=== PATIENT | male | born 1960 | race Caucasian/White ===

== ENCOUNTER 2020-09-12 17:06 | Emergency (ER) | payer BC, SELFPAY ==
[2020-09-12 17:28] VITALS: BP 150/82
[2020-09-12 17:47] VITALS: PULSE 70; RESP 18; TEMP 36.7; O2SAT 97; BMI 39.9
== END 2020-09-12 19:31 | disposition left against medical advice (07) ==
PROVIDERS: Emergency Provider Emergency Medicine; PCP Internal Medicine
DX: R51.9 Headache, unspecified (principal); I10 Essential (primary) hypertension
CPT/HCPCS: 99281; 99283

== ENCOUNTER 2020-10-25 09:39 | Outpatient (REF) | payer BC, SELFPAY ==
--- NOTE | ~2020-10-25 | CT_ITS ---
EXAMINATION: CT HEAD WITHOUT CONTRAST CLINICAL INFORMATION: Secondary polycythemia. Headaches. COMPARISON: June 18, 2006 TECHNIQUE: Contiguous axial imaging was performed from the skull base to vertex without intravenous administration of contrast. This CT examination was performed using dose optimization techniques as appropriate, variously including the following: *Automated exposure control *Adjustment of mA and/or kV according to patient size (this includes techniques or standardized protocols for targeted exams where dose is matched to indication/reason for exam; i.e. extremities or head) *Use of iterative reconstruction technique DLP: 956 mGy-cm FINDINGS: There is no evidence of acute intracranial hemorrhage or territorial infarction. No abnormal mass effect or midline shift is seen. Sneed to white matter differentiation is well preserved. No extra-axial fluid collections are identified. The ventricles are normal in size. There is no abnormal attenuation within the brain parenchyma. The osseous structures and soft tissues are normal. The mastoid air cells and visualized portions of the paranasal sinuses are well aerated. CT/CT head/brain wo con IMPRESSION: No acute intracranial pathology.
[2020-10-25 10:59] LABS: MANUAL DIFF FLAG NO
[2020-10-25 11:01] LABS: Basophils Percent Auto 0.6 % (0-2); Eosinophils Absolute Auto 0.1 X10*3/uL (0.0-0.4); Eosinophils Percent Auto 1.3 % (0-4); Hematocrit 49.3 % (42-52); Hemoglobin 17.1 g/dl (14.0-18.0); Imm Gran Abs Auto 0.01 X10*3/uL (0.00-0.03); Imm Gran Pct Auto 0.1 % (0.0-0.4); Lymphocytes Absolute Auto 2.1 X10*3/uL (1.2-4.9); Lymphocytes Percent Auto 30.7 % (20-40); Mean Corpuscular HGB Conc 34.7 g/dl (31.0-36.0); Mean Corpuscular Hemoglobin 29.2 pg (27.0-33.0); Mean Corpuscular Volume 84.3 fL (80-98); Mean Platelet Volume 10.7 fL (9.4-12.4); Monocytes Absolute Auto 0.5 X10*3/uL (0.1-1.2); Monocytes Percent Auto 7.6 % (2-11); Neutrophils Percent Auto 59.7 % (45-73); Platelet Count 206 X10*3/uL (160-400); Red Blood Count 5.85 X10*6/uL (4.60-5.80); Red Cell Distribution Width 12.9 % (11.0-16.0); White Blood Count 6.8 X10*3/uL (4.8-10.8)
[2020-10-25 11:13] LABS: Estimated Average Glucose 114 mg/dL; Hemoglobin A1c % 5.6 %
[2020-10-25 11:26] LABS: Glucose Urine UA NEG (NEG); Leukocyte Esterase Urine NEG (NEG); Nitrite Urine NEG (NEG); Specific Gravity - Urine >= 1.030 (1.005-1.025); Urine Blood TRACE (NEG); Urine Ketones NEG (NEG); Urine Protein NEG (NEG-TRACE)
[2020-10-25 11:29] LABS: Alanine Aminotransferase 20 U/L (0-40); Albumin Level 4.6 g/dL (3.5-5.0); Alkaline Phosphatase 90 U/L (39-117); Anion Gap 12 (12-20); Aspartate Amino Transferase 19 U/L (5-37); Bilirubin Total 1.9 mg/dL (0.0-1.0); Blood Urea Nitrogen 19 mg/dL (9-16); Calcium 9.4 mg/dL (8.4-10.2); Carbon Dioxide 25 mmol/L (22-29); Chloride 108 mmol/L (96-108); Cholesterol 155 mg/dL; Estimated Glomerular Filt Rate > 60; Glucose Random 107 mg/dL (60-115); HDL Cholesterol 35 mg/dL; LDL Cholesterol Calculated 105 mg/dl; Potassium 4.5 mmol/L (3.3-5.1); Sodium 140 mmol/L (135-145); Total Protein 7.4 g/dL (6.5-8.0); Triglycerides 75 mg/dL
[2020-10-25 11:48] LABS: Appearance Urine CLEAR; Color Urine YELLOW
[2020-10-25 11:53] LABS: Free T4 (Free Thyroxine) 0.95 ng/dL (0.71-1.85); Thyroid Stimulating Hormone 0.93 uIU/mL (0.32-4.0)
[2020-10-25 12:01] LABS: RBC Urine 0-2 /HPF (0); WBC Urine 0-2 /HPF (0-4)
[2020-10-25 12:02] LABS: Squamous Epithelial Cell Urine TRACE /LPF
[2020-10-25 18:38] LABS: Folate 13.8 ng/mL (> or = 4.0); Vitamin B12 687 pg/mL (200-900)
== END 2020-10-25 09:40 | disposition home or self-care (01) ==
LOC: HO.CT 09:39
PROVIDERS: PCP Internal Medicine; Visit Provider Internal Medicine
DX: R51.9 Headache, unspecified (principal); R73.02 Impaired glucose tolerance (oral); D75.1 Secondary polycythemia; E78.00 Pure hypercholesterolemia, unspecified
CPT/HCPCS: 36415; 70450; 80053; 80061; 81001; 82607; 82746; 83036; 84439; 84443; 85025

== ENCOUNTER 2022-11-21 22:23 | Emergency (ER) | payer BC, SELFPAY ==
--- NOTE | 2022-11-21 | ECG_ITS ---
Test Reason : DIZZINESS Blood Pressure : / mmHG Vent. Rate : 074 BPM Atrial Rate : 074 BPM P-R Int : 152 ms QRS Dur : 092 ms QT Int : 396 ms P-R-T Axes : 059 -22 026 degrees QTc Int : 439 ms Normal sinus rhythm with sinus arrhythmia Normal ECG No previous ECGs available Referred By: Generic ED Physician Electronically Signed By:KASIA SHETTY MD
[2022-11-21 22:32] VITALS: BMI 44.3
[2022-11-21 22:35] VITALS: BP 186/118; PULSE 79; RESP 18; TEMP 36.6; O2SAT 95
[2022-11-21 22:38] VITALS: BP 156/104
--- NOTE | 2022-11-21 22:40 | MHC.EDTECH ---
PT EKG TAKEN AND WAS READ BY PROVIDER .
--- NOTE | 2022-11-21 22:48 | MHC.EDTECH ---
PT BLOOD DRAWN AND SENT TO LAB .
[2022-11-21 22:49] LABS: MANUAL DIFF FLAG NO
[2022-11-21 22:50] LABS: Basophils Absolute Auto 0.1 X10*3/uL (0.0-0.2); Basophils Percent Auto 0.6 % (0-2); Eosinophils Absolute Auto 0.1 X10*3/uL (0.0-0.4); Eosinophils Percent Auto 1.2 % (0-4); Hematocrit 50.4 % (42.0-52.0); Hemoglobin 17.4 g/dl (14.0-18.0); Imm Gran Abs Auto 0.04 X10*3/uL (0.00-0.03); Imm Gran Pct Auto 0.4 % (0.0-0.4); Lymphocytes Absolute Auto 3.3 X10*3/uL (1.2-4.9); Lymphocytes Percent Auto 29.3 % (20-40); Mean Corpuscular HGB Conc 34.5 g/dl (31.0-36.0); Mean Corpuscular Hemoglobin 28.7 pg (27.0-33.0); Mean Platelet Volume 10.3 fL (9.4-12.4); Monocytes Absolute Auto 0.9 X10*3/uL (0.1-1.2); Monocytes Percent Auto 7.8 % (2-11); Neutrophils Absolute Auto 6.9 x10*3/uL (2.0-8.3); Neutrophils Percent Auto 60.7 % (45-73); Platelet Count 216 X10*3/uL (160-400); Red Blood Count 6.07 X10*6/uL (4.60-5.80); Red Cell Distribution Width 13.2 % (11.0-16.0); White Blood Count 11.3 X10*3/uL (4.8-10.8)
[2022-11-21 23:10] LABS: Alanine Aminotransferase 37 U/L (0-40); Albumin Level 4.3 g/dL (3.5-5.0); Alkaline Phosphatase 93 U/L (39-117); Anion Gap 14 (12-20); Aspartate Amino Transferase 25 U/L (5-37); Bilirubin Direct 0.2 mg/dL (0.0-0.5); Bilirubin Total 0.9 mg/dL (0.0-1.0); Blood Urea Nitrogen 17 mg/dL (9-16); Calcium 9.1 mg/dL (8.4-10.2); Carbon Dioxide 24 mmol/L (22-29); Chloride 108 mmol/L (96-108); Estimated Glomerular Filt Rate > 60; Glucose Random 182 mg/dL (60-115); Lipase 39 U/L (8-78); Potassium 4.1 mmol/L (3.3-5.1); Sodium 142 mmol/L (135-145); Total Protein 7.2 g/dL (6.5-8.0)
[2022-11-21 23:14] LABS: Troponin-I High Sensitivity < 3.5 ng/L (<3.5-35.0)
[2022-11-22 01:42] VITALS: BP 144/84; PULSE 76; RESP 13; TEMP 36.6; O2SAT 97
--- NOTE | 2022-11-22 04:11 | ED.DIZZY ---
HPI - Dizziness General Chief Complaint: Dizziness Stated Complaint: severe Dizziness Time Seen by Provider: 11/22/22 03:43 Source: patient Mode of arrival: ambulatory Limitations: no limitations History of Present Illness HPI Narrative: 62-year-old male presents with dizziness. Symptoms started acutely around dinnertime. It was associated with a sensation of the room spinning. He had no chest pain or shortness of breath. He had no palpitations. No near syncopal symptoms. Symptoms are worse with head movement or position. Patient does have a history of tinnitus over the last 2 months particularly on the left ear. Denies any hearing loss or pressure in the ear. Denies any ear pain. Patient never had this before. Patient is asymptomatic at this time Related Data Previous Rx's Medication Instructions Recorded meclizine 25 mg tablet 25 mg PO TID PRN dizziness #10 tabs 11/22/22 ondansetron 4 mg disintegrating 4 mg PO Q8H PRN nausea and 11/22/22 tablet vomiting #10 tabs Allergies Allergy/AdvReac Type Severity Reaction Status Date / Time No Known Allergies Allergy Verified 11/21/22 22:34 [No Known Allergies*] FOR[facility]LY [facility] Past Medical History Medical History Impaired glucose tolerance Migraine SPARKS (nonalcoholic steatohepatitis) Obesity Osteoarthritis Surgical History History of colonoscopy Family History Family History Father Smoker H/O ETOH abuse Mother Liver cancer Diabetes Hypertension Sister Benign brain tumor Substance abuse Daughter No problems noted. Daughter No problems noted. Maternal Uncle Myocardial infarct Social History Social History Housing: House Alcohol intake: current Patient Tobacco Use Status: Former Tobacco user Tobacco use type: Cigarette Years Smoked: 18 y/o-21 y/0 e-Cigarette/Vaping Use: Never Used Second Hand Smoke Exposure: No Advance Directives: No Advance Directives Information Provided: Yes service: No Current occupational status: employed Cognitive needs: No Hearing needs: No Vision needs: Yes Physical Exam Vital Signs: Vital Signs: Last Vital Signs Temp 97.8 F 11/22/22 01:42 Pulse 76 11/22/22 01:42 Resp 13 11/22/22 01:42 BP 144/84 H 11/22/22 01:42 Pulse Ox 97 11/22/22 01:42 O2 Del Method Room Air 11/22/22 01:42 BMI result Body Mass Index 44.3 GEN: Well developed, no acute distress, alert, oriented HEENT: Normocephalic, atraumatic, normal external ears, nose appears normal, no oropharyngeal edema or exudates, tympanic membranes clear, no evidence of otitis media or externa Eyes: Normal to appearance, no nystagmus Neck: Supple, no lymphadenopathy Respiratory: Talks in complete sentences, no respiratory distress, clear to auscultation bilaterally Cardiovascular: Regular rate and rhythm, no murmurs rubs or gallops Abdomen: Soft, nontender, nondistended, no guarding, no rebound Back: No CVA tenderness Extremities: No clubbing cyanosis or edema Neurologic: No focal neurologic deficits, cranial nerves 2-12 intact, strength is 5/5 bilaterally, gait normal Skin: No rash Course Course Course Narrative: 62-year-old male presents with dizziness. Symptoms are most consistent with vertigo. They were worse with position in head movement. Associated with 2 episodes nausea vomiting. No chest pain or shortness of breath associated. Examination is benign without focal neurologic deficits. There is no evidence of acute otitis media or externa. He has no nystagmus. As patient is asymptomatic, will discharge patient with prescription to take as needed. He has already been referred by his primary care provider to ENT. For worsening or more severe symptoms, or any other concerning symptoms, patient was referred back to the emergency department. Medical Decision Making Medical Decision Making MDM Narrative: 62-year-old male presents with dizziness. Symptoms are most consistent with vertigo. They were worse with position in head movement. Associated with 2 episodes nausea vomiting. No chest pain or shortness of breath associated. Examination is benign without focal neurologic deficits. There is no evidence of acute otitis media or externa. He has no nystagmus. As patient is asymptomatic, will discharge patient with prescription to take as needed. He has already been referred by his primary care provider to ENT. For worsening or more severe symptoms, or any other concerning symptoms, patient was referred back to the emergency department. Differential Diagnosis Differential Diagnoses: The differential diagnosis associated with the presentation includes (BPPV, labyrinthitis, vestibular neuritis, otosclerosis, neuritis, neuropathy) Vertigo Admission/Observation Consideration of admission/observation: Escalation of care including admission/observation considered Lab Data MDM Lab Attestation statement: I reviewed the patient's lab results. 11/21/22 22:44 11/21/22 22:44 Labs: Lab Results 11/21/22 11/21/22 11/21/22 Range/Units 22:44 22:44 22:44 WBC 11.3 H (4.8-10.8) X10*3/uL RBC 6.07 H (4.60-5.80) X10*6/uL Hgb 17.4 (14.0-18.0) g/dl Hct 50.4 (42.0-52.0) % MCV 83.0 (80.0-98.0) fL MCH 28.7 (27.0-33.0) pg MCHC 34.5 (31.0-36.0) g/dl RDW 13.2 (11.0-16.0) % Plt Count 216 (160-400) X10*3/uL MPV 10.3 (9.4-12.4) fL Immature Gran % (Auto) 0.4 (0.0-0.4) % Neut % (Auto) 60.7 (45-73) % Lymph % (Auto) 29.3 (20-40) % [place] % (Auto) 7.8 (2-11) % Eos % (Auto) 1.2 (0-4) % Baso % (Auto) 0.6 (0-2) % Lymph # (Auto) 3.3 (1.2-4.9) X10*3/uL [place] # (Auto) 0.9 (0.1-1.2) X10*3/uL Eos # (Auto) 0.1 (0.0-0.4) X10*3/uL Baso # (Auto) 0.1 (0.0-0.2) X10*3/uL Abs Immat Gran (auto) 0.04 H (0.00-0.03) X10*3/uL Absolute Neuts (auto) 6.9 (2.0-8.3) x10*3/uL Absolute Nucleated RBC 0.000 (0.0-0.012) X10*3/uL Nucleated RBC % (auto) 0.0 (0.0-0.2) /100WBC Sodium 142 (135-145) mmol/L Potassium 4.1 (3.3-5.1) mmol/L Chloride 108 (96-108) mmol/L Carbon Dioxide 24 (22-29) mmol/L Anion Gap 14 (12-20) BUN 17 H (9-16) mg/dL Creatinine 1.18 (0.5-1.4) mg/dL Estim Creat Clear Calc 90.0 Estimated GFR > 60 Random Glucose 182 H (60-115) mg/dL Calcium 9.1 (8.4-10.2) mg/dL Total Bilirubin 0.9 (0.0-1.0) mg/dL Direct Bilirubin 0.2 (0.0-0.5) mg/dL AST 25 (5-37) U/L ALT 37 (0-40) U/L Alkaline Phosphatase 93 (39-117) U/L Troponin I High Sens < 3.5 (<3.5-35.0) ng/L Total Protein 7.2 (6.5-8.0) g/dL Albumin 4.3 (3.5-5.0) g/dL Lipase 39 (8-78) U/L Independent Interpretation I performed an independent interpretation of an: EKG (Normal sinus rhythm, heart rate 74, normal intervals, no acute ST elevations or depressions) Tests considered The following testing was considered but not selected: CT of the head, no focal neurologic deficits no definite indication for CT or MRI of the brain to rule out mass effect. He has no stat either horizontal nor vertical. Prescription Management I considered prescription management with: Other (Antiemetic, Antivert) Discharge Plan Discharge Clinical Impression: Vertigo Patient Disposition: Home, Self-Care Instructions: Vertigo (ED), Dizziness (ED) Additional Instructions: Follow-up ENT the p prescribed Prescriptions: New meclizine 25 mg tablet 25 mg PO TID PRN (Reason: dizziness) Qty: 10 0RF ondansetron 4 mg tablet,disintegrating 4 mg PO Q8H PRN (Reason: nausea and vomiting) Qty: 10 0RF
[2022-11-22 04:26] VITALS: BP 146/83; PULSE 77; RESP 14; TEMP 36.7; O2SAT 97
--- NOTE | 2022-11-22 04:29 | PC.NURSE ---
pt denies changes/ difficulties swallowing. bedside swallow eval performed pt PASSED.
--- NOTE | 2022-11-22 05:09 | PC.NURSE ---
pt denies pain.VSS. pt provided with discharge packet. pt verbalized understanding of discharge plan. pt awaiting ride from in room
== END 2022-11-22 05:40 | disposition home or self-care (01) ==
PROVIDERS: Emergency Provider Emergency Medicine; PCP Internal Medicine
DX: R42 Dizziness and giddiness (principal)
CPT/HCPCS: 36415; 80048; 80076; 83690; 84484; 85025; 93005; 99283; 99284

== ENCOUNTER 2022-12-01 13:04 | Outpatient (REF) | payer BC, SELFPAY ==
[2022-12-01 13:25] LABS: MANUAL DIFF FLAG NO
[2022-12-01 13:36] LABS: Basophils Absolute Auto 0.1 X10*3/uL (0.0-0.2); Basophils Percent Auto 0.8 % (0-2); Eosinophils Absolute Auto 0.1 X10*3/uL (0.0-0.4); Eosinophils Percent Auto 0.8 % (0-4); Hemoglobin 18.1 g/dl (14.0-18.0); Imm Gran Abs Auto 0.02 X10*3/uL (0.00-0.03); Imm Gran Pct Auto 0.2 % (0.0-0.4); Lymphocytes Absolute Auto 2.8 X10*3/uL (1.2-4.9); Lymphocytes Percent Auto 32.1 % (20-40); Mean Corpuscular HGB Conc 34.2 g/dl (31.0-36.0); Mean Corpuscular Hemoglobin 28.4 pg (27.0-33.0); Mean Corpuscular Volume 83.2 fL (80.0-98.0); Mean Platelet Volume 10.4 fL (9.4-12.4); Monocytes Absolute Auto 0.6 X10*3/uL (0.1-1.2); Neutrophils Absolute Auto 5.2 x10*3/uL (2.0-8.3); Neutrophils Percent Auto 59.1 % (45-73); Platelet Count 242 X10*3/uL (160-400); Red Blood Count 6.37 X10*6/uL (4.60-5.80); Red Cell Distribution Width 13.1 % (11.0-16.0); White Blood Count 8.8 X10*3/uL (4.8-10.8)
[2022-12-01 14:35] LABS: Estimated Average Glucose 146 mg/dL; Hemoglobin A1c % 6.7 %
[2022-12-01 14:52] LABS: Alanine Aminotransferase 43 U/L (0-40); Albumin Level 4.6 g/dL (3.5-5.0); Alkaline Phosphatase 100 U/L (39-117); Anion Gap 14 (12-20); Aspartate Amino Transferase 30 U/L (5-37); Bilirubin Total 1.3 mg/dL (0.0-1.0); Blood Urea Nitrogen 15 mg/dL (9-16); Calcium 9.6 mg/dL (8.4-10.2); Carbon Dioxide 23 mmol/L (22-29); Chloride 108 mmol/L (96-108); Cholesterol 159 mg/dL; Estimated Glomerular Filt Rate > 60; Glucose Random 120 mg/dL (60-115); HDL Cholesterol 31 mg/dL; LDL Cholesterol Calculated 112 mg/dl; Potassium 4.7 mmol/L (3.3-5.1); Sodium 140 mmol/L (135-145); Total Protein 7.6 g/dL (6.5-8.0); Triglycerides 82 mg/dL
[2022-12-01 15:06] LABS: Ferritin 351 ng/mL (20-250); Prostate Specific Antigen Scr 0.44 ng/mL (<0.05-4.0); Thyroid Stimulating Hormone 1.36 uIU/mL (0.32-4.0); Vitamin B12 807 pg/mL (200-900)
== END 2022-12-01 13:05 | disposition home or self-care (01) ==
LOC: HO.LAB 13:04
PROVIDERS: PCP Internal Medicine; Visit Provider Internal Medicine
DX: Z12.5 Encounter for screening for malignant neoplasm of prostate (principal); R73.02 Impaired glucose tolerance (oral); E78.00 Pure hypercholesterolemia, unspecified; K75.81 Nonalcoholic steatohepatitis (NASH)
CPT/HCPCS: 36415; 80053; 80061; 82607; 82728; 82746; 83036; 84153; 84439; 84443; 85025

== ENCOUNTER 2023-01-23 09:34 | Outpatient (REF) | payer BC, SELFPAY | END 2023-01-23 09:35 | disposition home or self-care (01) | LOC: HO.SH 09:34 | PROVIDERS: Visit Provider Internal Medicine | DX: Z01.118 Encounter for examination of ears and hearing with other abnormal findings (principal); H93.12 Tinnitus, left ear; H90.3 Sensorineural hearing loss, bilateral | CPT/HCPCS: 92557; 92567; 92588 ==

== ENCOUNTER 2023-03-11 13:28 | Outpatient (AMB) | payer BC, SELFPAY ==
[2023-03-11 13:36] VITALS: BP 134/78; PULSE 84; O2SAT 97; BMI 45.6
--- NOTE | 2023-03-11 13:36 | MHC.PC.OV ---
Vital Signs 03/11/23 13:36 Height 5 ft 9 in Weight 309 lb BMI 45.6 BP 134/78 Blood Pressure Location Lt brachial Position Sitting Pulse 84 Pulse Source Pulse Oximeter Pulse Oximetry (%) 97 Oxygen Delivery Method Room Air Intake Visit Reasons: DM Follow up Allergies No Known Allergies [No Known Allergies*] Allergy (Verified 03/11/23 13:37) Tobacco use date assessed: 10/22/22 Dental Screening Dental Screen Date: 03/11/23 Did you have a dental visit in the last 12 months?: No Did you have a dental problem in the last 6 months where you did not have access to dental care?: No Was dental information given to patient?: Patient has dentist HPI DM Follow up HPI Details 62-year-old obese male with impaired glucose tolerance, hypersomnia GERD coming in for follow-up. Last seen in October 2022 and advised blood work. Patient was reminded about colon cancer screening, noted to have an elevated blood pressure advised to monitor. Sleep study was requested hearing test requested. Patient is here for follow-up.. Review of the notes was in the emergency room for vertigo in October 2022 has been advised to follow-up with ear nose and throat [facility] Medical History (Updated 03/11/23 @ 14:16 by Elieser Rose MD) Impaired glucose tolerance Migraine SPARKS (nonalcoholic steatohepatitis) Obesity Osteoarthritis Surgical History History of colonoscopy Family History (Updated 03/11/23 @ 13:37 by Karen Huang CMA) Father Smoker H/O ETOH abuse Mother Liver cancer Diabetes Hypertension Sister Benign brain tumor Substance abuse Daughter No problems noted. Daughter No problems noted. Maternal Uncle Myocardial infarct Social History Housing: House Alcohol intake: current Alcohol intake frequency: holidays/special occasions only Patient Tobacco Use Status: Former Tobacco user Tobacco use type: Cigarette Years Smoked: 18 y/o-21 y/0 e-Cigarette/Vaping Use: Never Used Second Hand Smoke Exposure: No service: No Current occupational status: employed Cognitive needs: No Hearing needs: No Vision needs: Yes Questionnaire PHQ-9 Over the last 2 weeks, how often have you been bothered by any of the following problems? 1. Little interest or pleasure in doing things: not at all 2. Feeling down, depressed, or hopeless: not at all 3. Trouble falling or staying asleep, or sleeping too much: not at all 4. Feeling tired or having little energy: not at all 5. Poor appetite or overeating: not at all 6. Feeling bad about yourself - or that you are a failure or have let yourself or your family down: not at all 7. Trouble concentrating on things, such as reading the newspaper or watching television: not at all 8. Moving or speaking so slowly that other people could have noticed. Or the opposite - being so fidgety or restless that you have been moving around a lot more than usual: not at all 9. Thoughts that you would be better off or of hurting yourself in some way: not at all Total score: 0 Depression Screening Interpretation: Negative Source: Developed by Drs. Marcelo Mtz, Cherelle Alexander, Gatito Rapp and colleagues, with an educational marco from [employer]. Thrive Questionnaire Date Thrive assessed: 10/22/22 AUDIT C Alcohol Use Questionnaire (AUDIT-C) 1. How often do you have a drink containing alcohol?: Monthly or less 2. How many drinks containing alcohol do you have on a typical day when you are drinking?: 1 or 2 3. How often do you have six or more drinks on one occasion?: Never Total Score: 1 GRECIA-7 AMB Questionnaire GRECIA-7 Date GRECIA - 7 assessed: 10/22/22 Source: Developed by Drs. Marcelo Mtz, Cherelle Alexander, Gatito Rapp and colleagues, with an educational marco from [employer]. Physical exam (Primary Care) Vital Signs: Last Vital Signs Pulse 84 03/11/23 13:36 BP 134/78 03/11/23 13:36 Pulse Ox 97 03/11/23 13:36 Oxygen Delivery Method Room Air 03/11/23 13:36 BMI result Body Mass Index 45.6 Tobacco/Smoking Status: Tobacco use Status Tobacco use date assessed 10/22/22 03/11/23 13:38 Patient Tobacco Use Status Former Tobacco user 03/11/23 13:38 Tobacco use type Cigarette 03/11/23 13:38 e-Cigarette/Vaping Use Never Used 03/11/23 13:38 PHQ-9: PHQ-9 Score PHQ-9: Total score 0 03/11/23 13:49 Depression Screening Interpretation: Negative Thrive Assessment: Date of Thrive Assessment Date Thrive assessed 10/22/22 03/11/23 13:38 Const General: alert; No acute distress Eyes Conjunctivae: conjunctivae normal Resp Auscultation: clear to auscultation bilaterally Cardio Rate: regular rate Rhythm: regular rhythm GI Inspection: Yes normal to inspection Extrem General: Yes normal to inspection and No edema Results AMB Hemoglobin A1c AMB Hemoglobin A1c 7.0 % Last Edit by aKren Huang CMA on 03/11/23 13:49 Results Reviewed Results Reviewed: Laboratory Last Values Hgb A1c (Clinic) 7.0 % (4.0-6.0) H 03/11/23 13:38 Assessment and Plan Assessment & Plan (1) Type 2 diabetes mellitus with hyperglycemia: Code(s): E11.65 - Type 2 diabetes mellitus with hyperglycemia Plan: Decrease the amount of carbohydrate intake, pasta, bread, rice and potatoes are all sugar and that is aside from all the sweet stuff, remember that fruits are good but they are Sweet also. Hemoglobin A1c goal of less than 6.5. Had a very long discussion with the patient with regards to diabetes complications and management patient declined to start on medication and would like to do diet and exercise. (2) GERD (gastroesophageal reflux disease): Code(s): K21.9 - Gastro-esophageal reflux disease without esophagitis Plan: Avoid the foods that causes that usually spicy foods, tomato products, juices, coffee, soda and foods that your sensitive to. After eating do not lie down, allow 3-4 hours before in lie down. And keep the head of bed above 30 degrees to avoid the acid from going up. (3) Tinnitus of left ear: Code(s): H93.12 - Tinnitus, left ear Plan: Patient had a hearing test and advised that if it is still occurring may need ear nose and throat. Presently doing good would hold off from referral (4) Hypersomnia: Code(s): G47.10 - Hypersomnia, unspecified Plan: Patient feels this is not the problem (5) Hypercholesterolemia: Code(s): E78.00 - Pure hypercholesterolemia, unspecified Plan: Avoid fried foods, chicken skin, eggs, butter margarine, pastries and meat. Be it pork or beef they have a lot of cholesterol LDL goal of less than 100 and triglyceride of less than 150 had a long discussion with management of the problem declined any medication for now (6) Obesity: Code(s): E66.9 - Obesity, unspecified Qualifiers: Obesity type: due to excess calories Obesity classification: adult class 3 (BMI >= 40) Serious obesity comorbidity presence: without serious comorbidity Body mass index: BMI 40.0-44.9 Qualified Code(s): E66.01 - Morbid (severe) obesity due to excess calories; Z68.41 - Body mass index [BMI]40.0-44.9, adult Plan: Diet and exercise Orders: Orders Comprehensive Met. Panel 3 Months E11.65 - Type 2 diabetes mellitus with hyperglycemia Hemoglobin A1c 3 Months E11.65 - Type 2 diabetes mellitus with hyperglycemia Lipid Panel 3 Months E11.65 - Type 2 diabetes mellitus with hyperglycemia, E78.00 - Pure hypercholesterolemia, unspecified Complete Blood Count Auto Diff 3 Months E11.65 - Type 2 diabetes mellitus with hyperglycemia AMB Hemoglobin A1c Today Z13.9 - Encounter for screening, unspecified Coding Level of Care Code Est Pt Level 4 (46803) Diagnoses Type 2 diabetes mellitus with hyperglycemia E11.65 GERD (gastroesophageal reflux disease) K21.9 Tinnitus of left ear H93.12 Hypersomnia G47.10 Hypercholesterolemia E78.00 Obesity E66.01; Z68.41 Obesity type: due to excess calories Obesity classification: adult class 3 (BMI >= 40) Serious obesity comorbidity presence: without serious comorbidity Body mass index: BMI 40.0-44.9
== END 2023-03-11 14:46 | disposition home or self-care (01) ==
PROVIDERS: PCP Internal Medicine; Visit Provider Internal Medicine
DX: E11.65 Type 2 diabetes mellitus with hyperglycemia (principal); K21.9 Gastro-esophageal reflux disease without esophagitis; E66.01 Morbid (severe) obesity due to excess calories; Z68.41 Body mass index [BMI] 40.0-44.9, adult; H93.12 Tinnitus, left ear; G47.10 Hypersomnia, unspecified; E78.00 Pure hypercholesterolemia, unspecified
CPT/HCPCS: 83036; 99214

== ENCOUNTER 2023-06-17 09:28 | Outpatient (REF) | payer BC, SELFPAY ==
[2023-06-17 09:43] LABS: MANUAL DIFF FLAG NO
[2023-06-17 10:18] LABS: Basophils Absolute Auto 0.1 X10*3/uL (0.0-0.2); Eosinophils Absolute Auto 0.1 X10*3/uL (0.0-0.4); Eosinophils Percent Auto 1.3 % (0-4); Hematocrit 53.2 % (42.0-52.0); Hemoglobin 18.1 g/dl (14.0-18.0); Imm Gran Abs Auto 0.02 X10*3/uL (0.00-0.03); Imm Gran Pct Auto 0.3 % (0.0-0.4); Lymphocytes Absolute Auto 2.2 X10*3/uL (1.2-4.9); Lymphocytes Percent Auto 35.8 % (20-40); Mean Corpuscular Volume 85.3 fL (80.0-98.0); Mean Platelet Volume 10.9 fL (9.4-12.4); Monocytes Absolute Auto 0.5 X10*3/uL (0.1-1.2); Monocytes Percent Auto 7.9 % (2-11); Neutrophils Absolute Auto 3.2 x10*3/uL (2.0-8.3); Neutrophils Percent Auto 53.7 % (45-73); Platelet Count 239 X10*3/uL (160-400); Red Blood Count 6.24 X10*6/uL (4.60-5.80); Red Cell Distribution Width 13.1 % (11.0-16.0)
[2023-06-17 10:29] LABS: Estimated Average Glucose 114 mg/dL; Hemoglobin A1C 154.2397 umol/L; Hemoglobin A1c % 5.6 % (<6.0)
[2023-06-17 10:53] LABS: Alanine Aminotransferase 26 U/L (0-40); Albumin Level 4.5 g/dL (3.5-5.0); Alkaline Phosphatase 91 U/L (39-117); Anion Gap 13 (12-20); Aspartate Amino Transferase 21 U/L (5-37); Blood Urea Nitrogen 19 mg/dL (9-16); Calcium 9.9 mg/dL (8.4-10.2); Carbon Dioxide 23 mmol/L (22-29); Chloride 108 mmol/L (96-108); Cholesterol 147 mg/dL (<200); Estimated Glomerular Filt Rate > 60; Glucose Random 103 mg/dL (60-115); HDL Cholesterol 32 mg/dL (>40); LDL Cholesterol Calculated 104 mg/dL (<100); Potassium 4.4 mmol/L (3.3-5.1); Sodium 140 mmol/L (135-145); Total Protein 7.8 g/dL (6.5-8.0); Triglycerides 55 mg/dL (<150)
== END 2023-06-17 09:29 | disposition home or self-care (01) ==
LOC: HO.LAB 09:28
PROVIDERS: PCP Internal Medicine; Visit Provider Internal Medicine
DX: E11.65 Type 2 diabetes mellitus with hyperglycemia (principal); E78.00 Pure hypercholesterolemia, unspecified
CPT/HCPCS: 36415; 80053; 80061; 83036; 85025

== ENCOUNTER 2023-06-23 14:33 | Outpatient (AMB) | payer BC, SELFPAY ==
--- NOTE | 2023-06-23 14:34 | MHC.PC.OV ---
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 Allergies No Known Allergies [No Known Allergies*] Allergy (Verified 06/23/23 14:35) Medication List - Last Reconciled 06/23/23 by Elieser Rose MD alclometasone 0.05% 1 appl topical BID PRN bisacodyl (Dulcolax (bisacodyl)) 10 mg (2 x 5 mg) PO ONCE 1 day meclizine 25 mg PO TID PRN polyethylene glycol 3350 (Miralax) 238 grams PO ONCE Tobacco use date assessed: 06/23/23 Dental Screening Dental Screen Date: 06/23/23 Did you have a dental visit in the last 12 months?: Yes Did you have a dental problem in the last 6 months where you did not have access to dental care?: No Was dental information given to patient?: Patient has dentist HPI 3 MONTH F/U HPI Details 62 year old obese male with diabetes mellitus GERD hypercholesterolemia coming in for follow-up. Last seen in February 2023. Patient is here for follow-up colonoscopy is due [facility] Medical History (Updated 06/23/23 @ 15:19 by Elieser Rose MD) Vertigo Polycythemia Elevated cholesterol HTN (hypertension) GERD (gastroesophageal reflux disease) Migraine Obesity Osteoarthritis SPARKS (nonalcoholic steatohepatitis) Impaired glucose tolerance Surgical History (Updated 05/05/23 @ 14:50 by Anuradha Salvador RN) History of colonoscopy Family History (Updated 03/11/23 @ 13:37 by Karen Huang CMA) Father Smoker H/O ETOH abuse Mother Liver cancer Diabetes Hypertension Sister Benign brain tumor Substance abuse Daughter No problems noted. Daughter No problems noted. Maternal Uncle Myocardial infarct Social History Housing: House Alcohol intake: current Alcohol intake frequency: holidays/special occasions only Patient Tobacco Use Status: Former Tobacco user Tobacco use type: Cigarette Years Smoked: 18 y/o-21 y/0 e-Cigarette/Vaping Use: Never Used Second Hand Smoke Exposure: No service: No Current occupational status: employed Cognitive needs: No Hearing needs: No Vision needs: Yes Questionnaire Thrive Questionnaire Date Thrive assessed: 10/22/22 AUDIT C Alcohol Use Questionnaire (AUDIT-C) 1. How often do you have a drink containing alcohol?: Monthly or less 2. How many drinks containing alcohol do you have on a typical day when you are drinking?: 1 or 2 3. How often do you have six or more drinks on one occasion?: Never Total Score: 1 GRECIA-7 AMB Questionnaire GRECIA-7 Date GRECIA - 7 assessed: 10/22/22 Source: Developed by Drs. Marcelo Mtz, Cherelle Alexander, Gatito Rpap and colleagues, with an educational marco from [employer]. Physical exam (Primary Care) Vital Signs: Last Vital Signs Pulse 67 06/23/23 14:35 BP 132/80 06/23/23 15:09 Pulse Ox 98 06/23/23 14:35 Oxygen Delivery Method Room Air 06/23/23 14:35 BMI result Body Mass Index 40.5 Tobacco/Smoking Status: Tobacco use Status Tobacco use date assessed 06/23/23 06/23/23 14:35 Patient Tobacco Use Status Former Tobacco user 06/23/23 14:35 Tobacco use type Cigarette 06/23/23 14:35 e-Cigarette/Vaping Use Never Used 06/23/23 14:35 Thrive Assessment: Date of Thrive Assessment Date Thrive assessed 10/22/22 06/23/23 14:35 Const General: alert; No acute distress Eyes Conjunctivae: conjunctivae normal Resp Auscultation: clear to auscultation bilaterally Cardio Rate: regular rate Rhythm: regular rhythm GI Inspection: Yes normal to inspection Extrem General: Yes normal to inspection and No edema Assessment and Plan Assessment & Plan (1) Type 2 diabetes mellitus with hyperglycemia: Comment: Dr. gray Code(s): E11.65 - Type 2 diabetes mellitus with hyperglycemia Plan: Decrease the amount of carbohydrate intake, pasta, bread, rice and potatoes are all sugar and that is aside from all the sweet stuff, remember that fruits are good but they are Sweet also. Hemoglobin A1c goal of less than 6.5 patient is diet controlled (2) GERD (gastroesophageal reflux disease): Code(s): K21.9 - Gastro-esophageal reflux disease without esophagitis Plan: Avoid the foods that causes that usually spicy foods, tomato products, juices, coffee, soda and foods that your sensitive to. After eating do not lie down, allow 3-4 hours before in lie down. And keep the head of bed above 30 degrees to avoid the acid from going up. (3) Hypercholesterolemia: Code(s): E78.00 - Pure hypercholesterolemia, unspecified Plan: Avoid fried foods, chicken skin, eggs, butter margarine, pastries and meat. Be it pork or beef they have a lot of cholesterol LDL goal of less than 100 and triglyceride of less than 150 (4) Blood pressure elevated without history of HTN: Code(s): R03.0 - Elevated blood-pressure reading, without diagnosis of hypertension Plan: Blood pressure is controlled (5) Colon cancer screening: Code(s): Z12.11 - Encounter for screening for malignant neoplasm of colon Plan: Patient is reminded about colonoscopy (6) Polycythemia: Code(s): D75.1 - Secondary polycythemia Plan: Concern that the hemoglobin is 18 advised to retest again and if is still elevated will refer to hematology oncology (7) Obesity: Code(s): E66.9 - Obesity, unspecified Qualifiers: Body mass index: BMI 40.0-44.9 Obesity classification: adult class 3 (BMI >= 40) Obesity type: due to excess calories Serious obesity comorbidity presence: without serious comorbidity Qualified Code(s): E66.01 - Morbid (severe) obesity due to excess calories; Z68.41 - Body mass index [BMI]40.0-44.9, adult Plan: Continue with diet and exercise and losing weight (8) Eczema: Comment: face Code(s): L30.9 - Dermatitis, unspecified Plan: Steroid cream prescribed (9) Frozen shoulder: Comment: left Code(s): M75.00 - Adhesive capsulitis of unspecified shoulder Plan: resolving (3-4 weeks ) will call if not any better Orders: Orders Lipid Panel 3 Months E78.00 - Pure hypercholesterolemia, unspecified Hemoglobin A1c 3 Months E11.65 - Type 2 diabetes mellitus with hyperglycemia Complete Blood Count Auto Diff 3 Months D75.1 - Secondary polycythemia Comprehensive Met. Panel 3 Months E11.65 - Type 2 diabetes mellitus with hyperglycemia Medications: New alclometasone 0.05% 1 appl topical BID PRN 45 grams 0RF itching L30.9 - Dermatitis, unspecified Coding Level of Care Code Est Pt Level 4 (67369) Diagnoses Type 2 diabetes mellitus with hyperglycemia E11.65 GERD (gastroesophageal reflux disease) K21.9 Hypercholesterolemia E78.00 Blood pressure elevated without history of HTN R03.0 Colon cancer screening Z12.11 Polycythemia D75.1 Class 3 severe obesity due to excess calories without serious comorbidity with body mass index (BMI) of 40.0 to 44.9 in adult E66.01; Z68.41 Body mass index: BMI 40.0-44.9 Obesity classification: adult class 3 (BMI >= 40) Obesity type: due to excess calories Serious obesity comorbidity presence: without serious comorbidity Eczema L30.9 Frozen shoulder M75.00
[2023-06-23 14:35] VITALS: BP 148/98; PULSE 67; O2SAT 98; BMI 40.5
[2023-06-23 15:09] VITALS: BP 132/80
== END 2023-06-23 15:24 | disposition home or self-care (01) ==
PROVIDERS: PCP Internal Medicine; Visit Provider Internal Medicine
DX: E11.65 Type 2 diabetes mellitus with hyperglycemia (principal); E66.01 Morbid (severe) obesity due to excess calories; Z68.41 Body mass index [BMI] 40.0-44.9, adult; K21.9 Gastro-esophageal reflux disease without esophagitis; E78.00 Pure hypercholesterolemia, unspecified; R03.0 Elevated blood-pressure reading, without diagnosis of hypertension; D75.1 Secondary polycythemia; L30.9 Dermatitis, unspecified; M75.00 Adhesive capsulitis of unspecified shoulder
CPT/HCPCS: 99214

== ENCOUNTER 2023-08-13 06:50 | Day surgery (SDC) | payer BC, SELFPAY ==
[2023-05-05 14:53] VITALS: BMI 45.6
--- NOTE | 2023-05-06 10:35 | HO.ANESPROP2 ---
HPI - Anesthesia Eval Consult details Narrative: 62yo M for Colonoscopy [facility] Active Problems Active Problems: All Active Problems (Updated 05/05/23 @ 14:52 by Anuradha Salvador RN) Annual physical exam (Acute) Polycythemia (Acute) Headache (Acute) Sinus congestion (Acute) Colon cancer screening (Acute) Palpitations (Acute) Blood pressure elevated without history of HTN (Acute) Hypersomnia (Acute) Tinnitus of left ear (Acute) RUQ abdominal pain (Acute) GERD (gastroesophageal reflux disease) (Acute) Type 2 diabetes mellitus with hyperglycemia (Acute) Hypercholesterolemia (Acute) Obesity (Acute) Osteoarthritis (Acute) Past Medical History Medical History (Updated 05/05/23 @ 14:52 by Anuradha Salvador RN) Elevated cholesterol GERD (gastroesophageal reflux disease) HTN (hypertension) Impaired glucose tolerance Migraine SPARKS (nonalcoholic steatohepatitis) Obesity Osteoarthritis Polycythemia Vertigo Family History Family History (Updated 03/11/23 @ 13:37 by Karen Huang CMA) Father Smoker H/O ETOH abuse Mother Liver cancer Diabetes Hypertension Sister Benign brain tumor Substance abuse Daughter No problems noted. Daughter No problems noted. Maternal Uncle Myocardial infarct Surgical History Surgical History (Updated 05/05/23 @ 14:50 by Anuradha Salvador RN) History of colonoscopy Social History Social History Housing: House Alcohol intake: current Alcohol intake frequency: holidays/special occasions only Patient Tobacco Use Status: Former Tobacco user Tobacco use type: Cigarette Years Smoked: 18 y/o-21 y/0 e-Cigarette/Vaping Use: Never Used Second Hand Smoke Exposure: No service: No Current occupational status: employed Cognitive needs: No Hearing needs: No Vision needs: Yes Meds Allergies Allergy/AdvReac Type Severity Reaction Status Date / Time No Known Allergies Allergy Verified 03/11/23 13:37 [No Known Allergies*] Home Medications Medication Instructions Recorded Confirmed Last Taken Type meclizine 25 mg tablet 25 mg PO TID PRN dizziness 05/05/23 05/05/23 Unknown History Exam Exam Date and Time: May 06, 2023 1035 Height,Weight and Vital Signs: Height 5 ft 9 in Weight 140.16 kg Pertinent Lab Results Pertinent Lab Results: Laboratory Tests 12/01/22 12/01/22 13:24 13:24 WBC 8.8 Hgb 18.1 H Hct 53.0 H Plt Count 242 Sodium 140 Potassium 4.7 Chloride 108 Carbon Dioxide 23 BUN 15 Creatinine 1.04 Narrative Narrative: EKG 10/2022 Vent. Rate : 074 BPM ? ? Atrial Rate : 074 BPM ?? P-R Int : 152 ms? QRS Dur : 092 ms ? ? QT Int : 396 ms ? ? ? P-R-T Axes : 059 -22 026 degrees ?? QTc Int : 439 ms ? Normal sinus rhythm with sinus arrhythmia Normal ECG No previous ECGs available Assessment and Plan Assessment Anesthesia Assessment: Chart Reviewed
--- NOTE | 2023-08-12 09:12 | P.CONAN_ITS ---
Documented by User: Danuta Farr NP 08/12/23 09:13 HPI - Anesthesia Eval Consult details Narrative: 63yo M for Colonoscopy PMFSH Active Problems Active Problems: All Active Problems (Updated 06/23/23 @ 15:19 by Elieser Rose MD) Frozen shoulder (Acute) Eczema (Acute) Hypercholesterolemia (Acute) Type 2 diabetes mellitus with hyperglycemia (Acute) GERD (gastroesophageal reflux disease) (Acute) RUQ abdominal pain (Acute) Tinnitus of left ear (Acute) Hypersomnia (Acute) Blood pressure elevated without history of HTN (Acute) Palpitations (Acute) Colon cancer screening (Acute) Sinus congestion (Acute) Headache (Acute) Polycythemia (Acute) Annual physical exam (Acute) Obesity (Acute) Osteoarthritis (Acute) Past Medical History Medical History Vertigo Polycythemia Elevated cholesterol HTN (hypertension) GERD (gastroesophageal reflux disease) Migraine Obesity Osteoarthritis SAPRKS (nonalcoholic steatohepatitis) Impaired glucose tolerance Family History Family History (Updated 03/11/23 @ 13:37 by Karen Huang CMA) Father Smoker H/O ETOH abuse Mother Liver cancer Diabetes Hypertension Sister Benign brain tumor Substance abuse Daughter No problems noted. Daughter No problems noted. Maternal Uncle Myocardial infarct Surgical History Surgical History History of colonoscopy Social History Social History Housing: House Alcohol intake: current Alcohol intake frequency: holidays/special occasions only Patient Tobacco Use Status: Former Tobacco user Quit Date: 35 years ago Tobacco use type: Cigarette Years Smoked: 18 y/o-21 y/0 e-Cigarette/Vaping Use: Never Used Second Hand Smoke Exposure: No Use of substances other than those prescribed or required for medical reasons: No Are you DNR?: No Advance Directives: No Advance Directives Information Provided: Yes service: No Current occupational status: employed Cognitive needs: No Hearing needs: No Vision needs: Yes Meds Allergies Allergy/AdvReac Type Severity Reaction Status Date / Time No Known Allergies Allergy Verified 08/13/23 06:58 [No Known Allergies*] Exam Height,Weight and Vital Signs: Height 5 ft 9 in Weight 140.16 kg Pertinent Lab Results Pertinent Lab Results: Laboratory Tests 06/17/23 09:39 WBC 6.0 Hgb 18.1 H Hct 53.2 H Plt Count 239 Sodium 140 Potassium 4.4 Chloride 108 Carbon Dioxide 23 BUN 19 H Creatinine 0.91 Assessment and Plan Assessment Anesthesia Assessment: Chart Reviewed Documented by User: Broderick Cool MD 08/13/23 07:29 PMFSH Past Medical History Medical History Vertigo Polycythemia Elevated cholesterol HTN (hypertension) GERD (gastroesophageal reflux disease) Migraine Obesity Osteoarthritis SPARKS (nonalcoholic steatohepatitis) Impaired glucose tolerance Family History Family History (Updated 03/11/23 @ 13:37 by Karen Huang CMA) Father Smoker H/O ETOH abuse Mother Liver cancer Diabetes Hypertension Sister Benign brain tumor Substance abuse Daughter No problems noted. Daughter No problems noted. Maternal Uncle Myocardial infarct Family history of problems with anesthesia: No Surgical History Surgical History History of colonoscopy History of Problems with Anesthesia: No Social History Social History Housing: House Alcohol intake: current Alcohol intake frequency: holidays/special occasions only Patient Tobacco Use Status: Former Tobacco user Quit Date: 35 years ago Tobacco use type: Cigarette Years Smoked: 18 y/o-21 y/0 e-Cigarette/Vaping Use: Never Used Second Hand Smoke Exposure: No Use of substances other than those prescribed or required for medical reasons: No Are you DNR?: No Advance Directives: No Advance Directives Information Provided: Yes service: No Current occupational status: employed Cognitive needs: No Hearing needs: No Vision needs: Yes Meds Allergies Allergy/AdvReac Type Severity Reaction Status Date / Time No Known Allergies Allergy Verified 08/13/23 06:58 [No Known Allergies*] Exam Airway Mallampati Class: II TM Dist: >3cm Neck ROM: Full Heart: rrr Lungs: cta Assessment and Plan Final Anesthetic Review Family History of Problems with Anesthesia: No History of Problems with Anesthesia: No NPO: Yes ASA Class: III Final Preanesthetic Review: No Changes in Pt Med Stat, Meds/Allgs Chart Reviewed, Consent Obtained/Reviewed and Anes Risks/Benef Reviewed Patient Risk: Intermediate Procedure Risk: Low Anesthetic Plan Anesthetic Plan: MAC: and Agree w/ Assess. and Plan Disposition: Standard PACU
--- NOTE | 2023-08-13 06:35 | MHC.SHP ---
Pre-Procedural Eval Section A Date of Service: 08/13/23 Section B Chief Complaint: Encounter for screening for malignant neoplasm Relevant Family History (Specify if Yes): No Relevant Social History: None Present Medications: see Short Stay Collaborative assessment Medical History: Significant History (Vertigo Polycythemia Elevated cholesterol HTN (hypertension) GERD (gastroesophageal reflux disease) Migraine Obesity Osteoarthritis SPARKS (nonalcoholic steatohepatitis) Impaired glucose tolerance) History of Previous Operations: Relevant previous surgery/procedure and date(s) (colonoscopy) Allergies: Allergies Allergy/AdvReac Type Severity Reaction Status Date / Time No Known Allergies Allergy Verified 06/23/23 14:35 [No Known Allergies*] Review of Systems Sugical H&P ROS: Negative: Constitution, Cardiovascular, Respiratory, Neurological, Psychiatric, Hem-Onc, Allergic/Immunologic, Gastrointestinal, Genitourinary, Musculoskeletal, Integumentary, Endocrine and Eyes/Ears/Nose/Throat Exam Surgical H&P Exam: Normal: HEENT, Normal: Heart, Normal: Lungs, Normal: Extremities, Normal: Abdomen, Normal: Skin and Normal: Neurological Plan Diagnosis/Plan: Unchanged I have reviewed the history and physical and performed a pertinent physical examination on my patient. No changes have occurred unless specified. Time Spent With Patient Time: Total time managing care of this patient today ____ minutes.
[2023-08-13 06:52] VITALS: BMI 40.3
[2023-08-13 07:13] VITALS: BP 174/90; PULSE 80; RESP 16; TEMP 36.2; O2SAT 96
[2023-08-13] MEDS: Lactated Ringers 1,000 ML 100 ML IVCONT (07:15)
--- NOTE | 2023-08-13 07:47 | W.PM.OPN ---
Operative Note Operative Note Date of Service: 08/13/23 Narrative: Operative Information Procedure Description: Colonoscopy Indication: screening Anesthesia: MAC COLONOSCOPY Instrument: Olympus variable stiffness pediatric scope 190L Colonoscopy Monitoring: Vital signs and clinical assessment, continuous EKG monitoring, Pulse oximetry, Carbon Dioxide monitoring and blood pressure monitoring were done throughout the procedure. Colon withdrawal time was 23 minutes. Procedure: The patient was placed in the left lateral decubitis position and pre-procedure medications were administered. After a digital rectal examination of the ano-rectum, the video colonoscope was inserted into the rectum and advanced through the colon to the cecum/TI. The colonoscope was slowly withdrawn in a retrograde panoramic fashion and the colon mucosa was carefully examined including a retroflexed view of the rectum. Findings and interventions are described below. Procedure Difficulty: easy Findings: Terminal Ileum-normal Cecum:normal Ascending Colon: normal Transverse Colon - x 2 sessile polyps 5-8 mm removed with cold forceps, x1 sessile polyp 10 mm, raised with eleview and removed with cold snare Descending Colon:normal Sigmoid Colon:mild diverticulosis Rectum: Retroflexion with medium sized internal hemorrhoids, grade I Anorectum - normal Colon preparation: [place] Bowel Preparation Scale Right colon; 2 Transverse colon: 3 Left colon; 3 (0 = Unprepared colon segment with mucosa not seen due to solid stool that cannot be cleared. 1 = Portion of mucosa of the colon segment seen, but other areas of the colon segment not well seen due to staining, residual stool and/or opaque liquid. 2 = Minor amount of residual staining, small fragments of stool and/or opaque liquid, but mucosa of colon segment seen well. 3 = Entire mucosa of colon segment seen well with no residual staining, small fragments of stool or opaque liquid) Impression and Post Procedure Diagnosis: polyps internal hemorrhoids diverticular disease Plan: High fiber diet leaflet Avoid straining at stool, epsom salts and sitz bath, anusol supps or cream Repeat Colonoscopy in 3 years due to polyps or earlier if clinically indicated Above findings were reviewed with the patient and relevant handouts were provided if indicated.
[2023-08-13 08:43] VITALS: BP 105/64; PULSE 63; RESP 16; TEMP 36.1; O2SAT 98
[2023-08-13 08:58] VITALS: BP 103/67; PULSE 57; RESP 18; TEMP 36.1; O2SAT 98
== END 2023-08-13 09:33 | disposition home or self-care (01) ==
PROVIDERS: PCP Internal Medicine; Visit Provider Internal Medicine Gastroenterology
PROC: 0DJD8ZZ Inspection of Lower Intestinal Tract, Via Natural or Artificial Opening Endoscopic (ICD-10-PCS; CPT 45378; principal; 2023-08-13 08:20)
DX: Z12.11 Encounter for screening for malignant neoplasm of colon (principal); D12.3 Benign neoplasm of transverse colon; K62.1 Rectal polyp; K57.30 Diverticulosis of large intestine without perforation or abscess without bleeding; K64.0 First degree hemorrhoids; E11.9 Type 2 diabetes mellitus without complications; I10 Essential (primary) hypertension; E78.00 Pure hypercholesterolemia, unspecified; K21.9 Gastro-esophageal reflux disease without esophagitis; K75.81 Nonalcoholic steatohepatitis (NASH); E66.9 Obesity, unspecified; Z68.41 Body mass index [BMI] 40.0-44.9, adult; Z87.891 Personal history of nicotine dependence
CPT/HCPCS: 45381; 45385; 45380; 88305; J2704

== ENCOUNTER → 2023-08-13 06:50 | Outpatient (BNV) | payer BC, SELFPAY | PROVIDERS: PCP Internal Medicine; Visit Provider Internal Medicine Gastroenterology | DX: Z12.11 Encounter for screening for malignant neoplasm of colon (principal); D12.3 Benign neoplasm of transverse colon; K57.30 Diverticulosis of large intestine without perforation or abscess without bleeding; K64.0 First degree hemorrhoids | CPT/HCPCS: 45380; 45381; 45385 ==

== ENCOUNTER 2023-10-20 10:59 | Outpatient (REF) | payer BC, SELFPAY ==
[2023-10-20 11:14] LABS: MANUAL DIFF FLAG NO
[2023-10-20 11:46] LABS: Estimated Average Glucose 114 mg/dL; Hemoglobin A1c % 5.6 % (<6.0)
[2023-10-20 11:48] LABS: Basophils Absolute Auto 0.1 X10*3/uL (0.0-0.2); Basophils Percent Auto 0.7 % (0-2); Eosinophils Absolute Auto 0.1 X10*3/uL (0.0-0.4); Eosinophils Percent Auto 1.2 % (0-4); Hemoglobin 18.5 g/dl (14.0-18.0); Imm Gran Abs Auto 0.02 X10*3/uL (0.00-0.03); Imm Gran Pct Auto 0.3 % (0.0-0.4); Lymphocytes Absolute Auto 2.7 X10*3/uL (1.2-4.9); Lymphocytes Percent Auto 35.5 % (20-40); Mean Corpuscular HGB Conc 33.6 g/dl (31.0-36.0); Mean Corpuscular Hemoglobin 28.2 pg (27.0-33.0); Mean Platelet Volume 11.4 fL (9.4-12.4); Monocytes Absolute Auto 0.5 X10*3/uL (0.1-1.2); Monocytes Percent Auto 7.1 % (2-11); Neutrophils Absolute Auto 4.2 x10*3/uL (2.0-8.3); Neutrophils Percent Auto 55.2 % (45-73); Platelet Count 184 X10*3/uL (160-400); Red Blood Count 6.56 X10*6/uL (4.60-5.80); White Blood Count 7.6 X10*3/uL (4.8-10.8)
[2023-10-20 12:18] LABS: Alanine Aminotransferase 21 U/L (0-40); Albumin Level 4.6 g/dL (3.5-5.0); Alkaline Phosphatase 95 U/L (39-117); Anion Gap 12 (12-20); Aspartate Amino Transferase 19 U/L (5-37); Bilirubin Total 1.2 mg/dL (0.0-1.0); Blood Urea Nitrogen 19 mg/dL (9-16); Calcium 9.7 mg/dL (8.4-10.2); Carbon Dioxide 28 mmol/L (22-29); Chloride 107 mmol/L (96-108); Cholesterol 167 mg/dL (<200); Estimated Glomerular Filt Rate > 60; Glucose Random 104 mg/dL (60-115); HDL Cholesterol 32 mg/dL (>40); LDL Cholesterol Calculated 117 mg/dL (<100); Sodium 142 mmol/L (135-145); Total Protein 8.1 g/dL (6.5-8.0); Triglycerides 94 mg/dL (<150)
[2023-10-20 12:29] LABS: Hematocrit 55.1 % (42.0-52.0)
== END 2023-10-20 11:00 | disposition home or self-care (01) ==
LOC: HO.LAB 10:59
PROVIDERS: PCP Internal Medicine; Visit Provider Internal Medicine
DX: D75.1 Secondary polycythemia (principal); E78.00 Pure hypercholesterolemia, unspecified; E11.65 Type 2 diabetes mellitus with hyperglycemia
CPT/HCPCS: 36415; 80053; 80061; 83036; 85025

== ENCOUNTER 2023-10-28 08:55 | Outpatient (AMB) | payer BC, SELFPAY ==
[2023-10-28 09:03] VITALS: BP 130/78; PULSE 79; O2SAT 98; BMI 40.6
--- NOTE | 2023-10-28 09:03 | A.OFFPC_ITS ---
Vital Signs 10/28/23 09:03 Height 5 ft 9 in Weight 275 lb BMI 40.6 BP 130/78 Blood Pressure Location Lt brachial Position Sitting Pulse 79 Pulse Source Pulse Oximeter Pulse Oximetry (%) 98 Oxygen Delivery Method Room Air Intake Visit Reasons: Annual exam Allergies No Known Allergies [No Known Allergies*] Allergy (Verified 10/28/23 09:04) Tobacco use date assessed: 10/28/23 Dental Screening Dental Screen Date: 10/28/23 Did you have a dental visit in the last 12 months?: Yes Did you have a dental problem in the last 6 months where you did not have access to dental care?: No Was dental information given to patient?: Patient has dentist HPI Annual exam HPI Details 63-year-old morbidly obese male with santiago betes mellitus GERD hypercholesterolemia polycythemia coming in for physical exam last seen in May 2023. Patient was noted to have an elevated blood pressure at that time and was advised to monitor blood pressure patient's colonoscopy is up-to-date July 2023. 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 Patient decided to reschedule physical exam as he has questions. Blood work has been explained to the patient. Meanwhile patient wanted an x-ray of the left shoulder 1st. Patient also complained of 4 days ago having a tooth pick in his mouth and all of a sudden the dog lunged at him and the tooth pick punctured the left upper gum area deep and complains of pain on the left maxillary area and was asking for an antibiotic. [facility] Medical History (Updated 10/28/23 @ 09:42 by Elieser Rose MD) Vertigo Polycythemia Elevated cholesterol HTN (hypertension) GERD (gastroesophageal reflux disease) Migraine Obesity Osteoarthritis SPARKS (nonalcoholic steatohepatitis) Impaired glucose tolerance Surgical History History of colonoscopy Family History (Updated 03/11/23 @ 13:37 by Karen Huang CMA) Father Smoker H/O ETOH abuse Mother Liver cancer Diabetes Hypertension Sister Benign brain tumor Substance abuse Daughter No problems noted. Daughter No problems noted. Maternal Uncle Myocardial infarct Social History Housing: House Alcohol intake: current Alcohol intake frequency: holidays/special occasions only Patient Tobacco Use Status: Former Tobacco user Quit Date: 35 years ago Tobacco use type: Cigarette Years Smoked: 18 y/o-21 y/0 e-Cigarette/Vaping Use: Never Used Second Hand Smoke Exposure: No service: No Current occupational status: employed Cognitive needs: No Hearing needs: No Vision needs: Yes Questionnaire PHQ-9 Over the last 2 weeks, how often have you been bothered by any of the following problems? 1. Little interest or pleasure in doing things: not at all 2. Feeling down, depressed, or hopeless: not at all 3. Trouble falling or staying asleep, or sleeping too much: not at all 4. Feeling tired or having little energy: not at all 5. Poor appetite or overeating: not at all 6. Feeling bad about yourself - or that you are a failure or have let yourself or your family down: not at all 7. Trouble concentrating on things, such as reading the newspaper or watching television: not at all 8. Moving or speaking so slowly that other people could have noticed. Or the opposite - being so fidgety or restless that you have been moving around a lot more than usual: not at all 9. Thoughts that you would be better off or of hurting yourself in some way: not at all Total score: 0 Depression Screening Interpretation: Negative Depression Screening Done: Yes Source: Developed by Drs. Marcelo Mtz, Cherelle Alexander, Gatito Rapp and colleagues, with an educational marco from [employer]. Thrive Questionnaire Date Thrive assessed: 10/28/23 I am a: Patient What is your living situation today?: I have a steady place to live Within the past 12 months, did the food you bought not last and you didn't have the money to get more?: Never true Within the past 12 months, did you worry whether your food would run out before you got money to buy more?: Never true Do you have trouble paying for medicines?: No Do you have trouble getting transportation to medical appointments?: No Do you have trouble paying your heating and electricity bill?: No Do you have trouble taking care of your child, family member or friend?: No Do you have trouble with day-to-day activities such as bathing, preparing meals, shopping, managing finances, etc.?: No Are you currently unemployed and looking for a job?: No Are you interested in more education?: No Currently or been in a relationship where the following occur: no concerns reported THRIVE Score: 0 AUDIT C Alcohol Use Questionnaire (AUDIT-C) 1. How often do you have a drink containing alcohol?: Monthly or less 2. How many drinks containing alcohol do you have on a typical day when you are drinking?: 1 or 2 3. How often do you have six or more drinks on one occasion?: Never Total Score: 1 GRECIA-7 AMB Questionnaire GRECIA-7 Date GRECIA - 7 assessed: 10/28/23 Feeling nervous, anxious, or on edge: 0 = Not at all Not being able to stop or control worryin = Not at all Worrying too much about different things: 0 = Not at all Trouble relaxin = Not at all Being so restless that it is hard to sit still: 0 = Not at all Becoming easily annoyed or irritable: 0 = Not at all Feeling afraid as if something awful might happen: 0 = Not at all Total GRECIA-7 score (0-4 normal; 5-9 mild; 10-14 moderate; 15-21 severe): 0 Source: Developed by Drs. Marcelo Mtz, Cherelle Alexander, Gatito Rapp and colleagues, with an educational marco from [employer]. Review of Systems Const Denies poor appetite and Denies weakness Eyes Denies no additional complaints ENT Reports Normal hearing present, Denies dizziness, Denies nasal congestion, Denies tinnitus and Denies sore throat Card Denies chest pain, Denies syncope, Denies rapid heart rate and Denies dyspnea Resp Denies cough and Denies dyspnea GI Denies change in stool character, Reports constipation, Denies diarrhea, Denies nausea and Denies vomiting Denies dysuria and Denies urinary frequency Neuro Reports Normal hearing present, Denies confusion, Denies dizziness, Denies syncope and Denies weakness Psych Denies confusion Physical exam (Primary Care) Vital Signs: Last Vital Signs Pulse 79 10/28/23 09:03 BP 130/78 10/28/23 09:03 Pulse Ox 98 10/28/23 09:03 Oxygen Delivery Method Room Air 10/28/23 09:03 BMI result Body Mass Index 40.6 Tobacco/Smoking Status: Tobacco use Status Tobacco use date assessed 10/28/23 10/28/23 09:09 Patient Tobacco Use Status Former Tobacco user 10/28/23 09:09 Tobacco use type Cigarette 10/28/23 09:09 e-Cigarette/Vaping Use Never Used 10/28/23 09:09 PHQ-9: PHQ-9 Score PHQ-9: Total score 0 10/28/23 09:09 Depression Screening Interpretation: Negative Thrive Assessment: Date of Thrive Assessment Date Thrive assessed 10/28/23 10/28/23 09:09 Currently or been in a relationship where the following occur: no concerns reported Const General: No confusion Orientation/consciousness: No confusion HENMT Head: Yes normocephalic Ears: external ears normal and TM's normal bilaterally Face and sinus: Yes normal facial exam Mouth: moist mucous membranes Throat: Yes tonsils normal Eyes Conjunctivae: conjunctivae normal Pupils: Equal, round and reactive pupils present and Pupil accommodation reflex normal Direct Ophthalmoscopy: normal light reflex Neck Neck: No lymphadenopathy Thyroid: Thyroid normal Chest Chest palpation & inspection: normal inspection of the chest Resp Effort & Inspection: normal respiratory effort and no audible wheezes Auscultation: clear to auscultation bilaterally, no crackles, no wheezes and lung sounds not diminished Cardio Rate: regular rate Rhythm: regular rhythm Peripheral pulses: radial pulses present and dorsalis pedis present GI Palpation (GI): no masses Auscultation: normal bowel sounds and normoactive bowel sounds Rectal Exam - Male: Yes deferred Skin General skin exam: no rashes or lesions noted Rashes: no rashes Neuro General: No confusion Cranial nerves: Yes Equal, round and reactive pupils present and Yes Normal hearing present Cognition (Neuro): normal cognition Gait exam (Neuro): Normal gait present Motor exam (neuro): 5/5 motor strength present throughout Deep tendon reflexes (DTR's): Right brachioradialis reflex intensity grade: 2+, Left brachioradialis reflex intensity grade: 2+, Right patellar reflex intensity grade: 2+ and Left patellar reflex intensity grade: 2+ Extrem General: No edema Assessment and Plan Assessment & Plan (1) Type 2 diabetes mellitus with hyperglycemia: Comment: Dr. gray Code(s): E11.65 - Type 2 diabetes mellitus with hyperglycemia Plan: Decrease the amount of carbohydrate intake, pasta, bread, rice and potatoes are all sugar and that is aside from all the sweet stuff, remember that fruits are good but they are Sweet also. Hemoglobin A1c goal of less than 6.5. Patient has been doing good (2) Hypercholesterolemia: Code(s): E78.00 - Pure hypercholesterolemia, unspecified Plan: Avoid fried foods, chicken skin, eggs, butter margarine, pastries and meat. Be it pork or beef they have a lot of cholesterol LDL goal of less than 100 and triglyceride of less than 150 patient declined any medication and would like to eat better and retest in 3 months. (3) Polycythemia: Code(s): D75.1 - Secondary polycythemia Plan: Discussed with the patient regarding polycythemia referral to Hematology Oncology done (4) Obesity: Code(s): E66.9 - Obesity, unspecified Qualifiers: Obesity type: due to excess calories Obesity classification: adult class 3 (BMI >= 40) Serious obesity comorbidity presence: without serious comorbidity Body mass index: BMI 40.0-44.9 Qualified Code(s): E66.01 - Morbid (severe) obesity due to excess calories; Z68.41 - Body mass index [BMI]40.0- 44.9, adult Plan: Diet and exercise (5) Shoulder pain, left: Code(s): M25.512 - Pain in left shoulder Plan: X-ray requested (6) Puncture wound: Comment: from the L upper gum area (10/2023) toothpick Code(s): T14.8XXA - Other injury of unspecified body region, initial encounter Plan: Discussed about antibiotic prescribed. Orders: Orders XR shoulder LT min 2V Today M25.512 - Pain in left shoulder Lipid Panel 3 Months E11.65 - Type 2 diabetes mellitus with hyperglycemia, E78.00 - Pure hypercholesterolemia, unspecified Comprehensive Met. Panel 3 Months E11.65 - Type 2 diabetes mellitus with hyperglycemia Hemoglobin A1c 3 Months E11.65 - Type 2 diabetes mellitus with hyperglycemia Referrals Hematology & Oncology Referral D75.1 - Secondary polycythemia Medications: New amoxicillin-pot clavulanate 875-125 mg 1 tab PO BID 14 tabs 0RF T14.8XXA - Other injury of unspecified body region, initial encounter Coding Level of Care Code Est Pt Level 4 (58470) Diagnoses Type 2 diabetes mellitus with hyperglycemia E11.65 Hypercholesterolemia E78.00 Polycythemia D75.1 Class 3 severe obesity due to excess calories without serious comorbidity with body mass index (BMI) of 40.0 to 44.9 in adult E66.01; Z68.41 Obesity type: due to excess calories Obesity classification: adult class 3 (BMI >= 40) Serious obesity comorbidity presence: without serious comorbidity Body mass index: BMI 40.0-44.9 Shoulder pain, left M25.512 Puncture wound T14.8XXA
== END 2023-10-28 09:50 | disposition home or self-care (01) ==
PROVIDERS: Visit Provider Internal Medicine
DX: E11.65 Type 2 diabetes mellitus with hyperglycemia (principal); E66.01 Morbid (severe) obesity due to excess calories; Z68.41 Body mass index [BMI] 40.0-44.9, adult; E78.00 Pure hypercholesterolemia, unspecified; D75.1 Secondary polycythemia; M25.512 Pain in left shoulder; T14.8XXA Other injury of unspecified body region, initial encounter
CPT/HCPCS: 99214

== ENCOUNTER → 2023-11-30 11:15 | Outpatient (BNV) | payer BC, SELFPAY | PROVIDERS: PCP Internal Medicine; Referring Provider Internal Medicine; Visit Provider Internal Medicine Medical Oncology | DX: D75.1 Secondary polycythemia (principal) | CPT/HCPCS: 99204 ==

== ENCOUNTER 2025-05-10 09:23 | Outpatient (AMB) | payer OTHER, SELFPAY ==
--- NOTE | 2025-05-10 09:55 | AM.OFFWIN_ITS ---
Intake Vital Signs 05/10/25 09:57 Height 5 ft 9 in Weight 309 lb BMI 45.6 BP 118/86 Blood Pressure Location Lt brachial Position Sitting Pulse 108 H Pulse Source Pulse Oximeter Temp 98.1 F Temp Source Oral Pulse Oximetry (%) 95 Oxygen Delivery Method Room Air Intake Visit Reasons: ep pain in left lower leg Intake Note: pt presents with left lateral calf burning pain for approx 6 months Patient Tobacco Use Status: Former Tobacco user Allergies No Known Allergies (No Known Allergies*) Allergy (Verified 05/10/25 09:58) Medication List - Last Reconciled 05/10/25 by Sundeep Gallo MD No Known Home Meds Do you need a note to return to daycare/school/sports/work: No HPI ep pain in left lower leg HPI Details History of Present Illness The patient is a 64-year-old male presenting with sciatic nerve pain and concerns about deep vein thrombosis. 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, lifting, and twisting activities Medical History: - Reports of lower back pain - Diagnosed with arthritis - Increasing pains in hips, knees, and l ower back Medications: - Tylenol for pain relief - Muscle relaxer (shared with spouse) fo r relief of unspecified pains Social History: - Works in maintenance, 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, lifting, and twisting - Plans to retire at age 68 - Reports recent weight gain impacting g [employer] health - Does not favor taking medication Problem List - neuralgia Patient Instructions - Continue taking Tylenol for pain relie f as needed - Continue using muscle relaxers as need ed - Reassured that there is no indication of possible blood clot as per examination Especially with symptoms subsiding and reoccurring for the past 6 months and there is no history of travel or clotting disorder Review of Systems - General: No fever no chills - Neurological: No headaches no dizziness - Ear nose throat: No sore throat no hearing difficulty no ear pain - Cardiovascular: No syncope, no chest pain, no palpitations - Gastrointestinal: No nausea vomiting or diarrhea Physical Exam General: No acute distress HEENT: No acute findings Neck: Supple Respiratory system: Able to talk in full sentences, no audible wheeze Gastrointestinal: No pain Extremities: Burning sensation lateral to right calf, no pain upon palpation, Homans sign negative [employer]: Alert awake oriented x3 motor sensory intact Skin: Normal turgor [facility] Medical History Vertigo Polycythemia Elevated cholesterol HTN (hypertension) GERD (gastroesophageal reflux disease) Migraine Obesity Osteoarthritis SPARKS (nonalcoholic steatohepatitis) Impaired glucose tolerance Surgical History History of colonoscopy Family History Father Smoker H/O ETOH abuse Mother Liver cancer Diabetes Hypertension Sister Benign brain tumor Substance abuse Daughter No problems noted. Daughter No problems noted. Maternal Uncle Myocardial infarct Social History Housing: House Alcohol intake: current Alcohol intake frequency: holidays/special occasions only Patient Tobacco Use Status: Former Tobacco user Tobacco use type: Cigarette Years Smoked: 18 y/o-21 y/0 e-Cigarette/Vaping Use: Never Used Second Hand Smoke Exposure: No service: No Current occupational status: employed Cognitive needs: No Hearing needs: No Vision needs: Yes Physical Exam Vital Signs: Last Vital Signs Temp 98.1 F 05/10/25 09:57 Pulse 108 H 05/10/25 09:57 BP 118/86 05/10/25 09:57 Pulse Ox 95 05/10/25 09:57 Oxygen Delivery Method Room Air 05/10/25 09:57 BMI result Body Mass Index 45.6 Assessment & Plan Assessment & Plan (1) Neuralgia: Code(s): M79.2 - Neuralgia and neuritis, unspecified Plan History of Present Illness The patient is a 64-year-old male presenting with sciatic nerve pain and concerns about deep vein thrombosis. 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, lifting, and twisting activities Medical History: - Reports of lower back pain - Diagnosed with arthritis - Increasing pains in hips, knees, and lower back Medications: - Tylenol for pain relief - Muscle relaxer (shared with spouse) for relief of unspecified pains Social History: - Works in maintenance, 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, lifting, and twisting - Plans to retire at age 68 - Reports recent weight gain impacting general health - Does not favor taking medication Problem List - neuralgia Patient Instructions - Continue taking Tylenol for pain relief as needed - Continue using muscle relaxers as needed - Reassured that there is no indication of possible blood clot as per examination Especially with symptoms subsiding and reoccurring for the past 6 months and there is no history of travel or clotting disorder Medications: New gabapentin 200 mg (2 x 100 mg) PO BEDTIME 60 caps 0RF 30 days Coding Level of Care Code Est Pt Level 3 (67797) Diagnoses Neuralgia M79.2
[2025-05-10 09:57] VITALS: BP 118/86; PULSE 108; TEMP 36.7; O2SAT 95; BMI 45.6
== END 2025-05-10 10:16 | disposition home or self-care (01) ==
PROVIDERS: PCP Internal Medicine; Visit Provider Internal Medicine
DX: M79.2 Neuralgia and neuritis, unspecified (principal)

== ENCOUNTER 2025-07-03 11:11 | Outpatient (AMB) | payer OTHER, SELFPAY ==
[2025-07-03 11:19] VITALS: BP 132/90; PULSE 88; TEMP 36.4; O2SAT 94; BMI 45.2
--- NOTE | 2025-07-03 11:19 | MHC.PC.OV ---
Vital Signs 07/03/25 11:19 Height 5 ft 9 in Weight 306 lb 4 oz BMI 45.2 BP 132/90 H Blood Pressure Location Lt brachial Position Sitting Pulse 88 Pulse Source Pulse Oximeter Temp 97.5 F Temp Source Temporal Artery Scan Pulse Oximetry (%) 94 Oxygen Delivery Method Room Air Intake Visit Reasons: Annual Physical Allergies No Known Allergies (No Known Allergies*) Allergy (Verified 07/03/25 11:22) Medication List - Last Reconciled 07/03/25 by Elieser Rose MD No Known Home Meds Tobacco use date assessed: 07/03/25 Dental Screening Dental Screen Date: 07/03/25 Did you have a dental visit in the last 12 months?: No Did you have a dental problem in the last 6 months where you did not have access to dental care?: No Was dental information given to patient?: No [facility] Medical History Vertigo Polycythemia Elevated cholesterol HTN (hypertension) GERD (gastroesophageal reflux disease) Migraine Obesity Osteoarthritis SPARKS (nonalcoholic steatohepatitis) Impaired glucose tolerance Surgical History History of colonoscopy Family History Father Smoker H/O ETOH abuse Mother Liver cancer Diabetes Hypertension Sister Benign brain tumor Substance abuse Daughter No problems noted. Daughter No problems noted. Maternal Uncle Myocardial infarct Social History Housing: House Alcohol intake: current Alcohol intake frequency: holidays/special occasions only Patient Tobacco Use Status: Former Tobacco user Tobacco use type: Cigarette Years Smoked: 18 y/o-21 y/0 e-Cigarette/Vaping Use: Never Used Second Hand Smoke Exposure: No service: No Current occupational status: employed Cognitive needs: No Hearing needs: No Vision needs: Yes Questionnaire PHQ-9 Over the last 2 weeks, how often have you been bothered by any of the following problems? 1. Little interest or pleasure in doing things: not at all 2. Feeling down, depressed, or hopeless: not at all 3. Trouble falling or staying asleep, or sleeping too much: not at all 4. Feeling tired or having little energy: not at all 5. Poor appetite or overeating: not at all 6. Feeling bad about yourself - or that you are a failure or have let yourself or your family down: not at all 7. Trouble concentrating on things, such as reading the newspaper or watching television: not at all 8. Moving or speaking so slowly that other people could have noticed. Or the opposite - being so fidgety or restless that you have been moving around a lot more than usual: not at all 9. Thoughts that you would be better off or of hurting yourself in some way: not at all Total score: 0 Depression Screening Interpretation: Negative Depression Screening Done: Yes 56936 - PHQ-9 Billing: Yes Source: Developed by Drs. Marcelo Mtz, Cherelle Alexander, Gatito Rapp and colleagues, with an educational marco from [employer]. Thrive Questionnaire Date Thrive assessed: 07/03/25 I am a: Parent/Caregiver What is your living situation today?: I have a steady place to live Within the past 12 months, did the food you bought not last and you didn't have the money to get more?: I choose not to answer this question Within the past 12 months, did you worry whether your food would run out before you got money to buy more?: I choose not to answer this question Do you have trouble paying for medicines?: No Do you have trouble getting transportation to medical appointments?: No Do you have trouble paying your heating and electricity bill?: No Do you have trouble taking care of your child, family member or friend?: I choose not to answer this question Do you have trouble with day-to-day activities such as bathing, preparing meals, shopping, managing finances, etc.?: No Are you currently unemployed and looking for a job?: No Are you interested in more education?: No Please select the resources that you would like help with: None THRIVE Score: 0 AUDIT C Alcohol Use Questionnaire (AUDIT-C) 1. How often do you have a drink containing alcohol?: Monthly or less 2. How many drinks containing alcohol do you have on a typical day when you are drinking?: 1 or 2 3. How often do you have six or more drinks on one occasion?: Never Total Score: 1 GRECIA-7 AMB Questionnaire GRECIA-7 Date GRECIA - 7 assessed: 07/03/25 Feeling nervous, anxious, or on edge: 0 = Not at all Not being able to stop or control worryin = Not at all Worrying too much about different things: 0 = Not at all Trouble relaxin = Not at all Being so restless that it is hard to sit still: 0 = Not at all Becoming easily annoyed or irritable: 0 = Not at all Feeling afraid as if something awful might happen: 0 = Not at all Total GRECIA-7 score (0-4 normal; 5-9 mild; 10-14 moderate; 15-21 severe): 0 Source: Developed by Drs. Marcelo Mtz, Cherelle Alexander, Gatito Rapp and colleagues, with an educational marco from [employer]. GRECIA-7 Assessment Billing GRECIA-7 Assessment Tool: GRECIA-7 Assessment 03687 Review of Systems Const Denies poor appetite and Denies weakness Eyes Denies no additional complaints ENT Reports Normal hearing present, Denies dizziness, Denies nasal congestion, Denies tinnitus and Denies sore throat Card Denies chest pain, Denies syncope, Denies rapid heart rate and Denies dyspnea Resp Denies cough and Denies dyspnea GI Denies change in stool character, Reports constipation, Denies diarrhea, Denies nausea and Denies vomiting Denies dysuria and Denies urinary frequency Neuro Reports Normal hearing present, Denies confusion, Denies dizziness, Denies syncope and Denies weakness Psych Denies confusion Physical exam (Primary Care) Vital Signs: Last Vital Signs Temp 97.5 F 07/03/25 11:19 Pulse 88 07/03/25 11:19 BP 132/90 H 07/03/25 11:19 Pulse Ox 94 07/03/25 11:19 Oxygen Delivery Method Room Air 07/03/25 11:19 BMI result Body Mass Index 45.2 Tobacco/Smoking Status: Tobacco use Status Tobacco use date assessed 07/03/25 07/03/25 11:23 Patient Tobacco Use Status Former Tobacco user 07/03/25 11:23 Tobacco use type Cigarette 07/03/25 11:23 e-Cigarette/Vaping Use Never Used 07/03/25 11:23 PHQ-9: PHQ-9 Score PHQ-9: Total score 0 07/03/25 11:33 Depression Screening Interpretation: Negative Thrive Assessment: Date of Thrive Assessment Date Thrive assessed 07/03/25 07/03/25 11:23 Const General: No confusion Orientation/consciousness: No confusion HENMT Head: Yes normocephalic Ears: external ears normal and TM's normal bilaterally Face and sinus: Yes normal facial exam Mouth: moist mucous membranes Throat: Yes tonsils normal Eyes Conjunctivae: conjunctivae normal Pupils: Equal, round and reactive pupils present and Pupil accommodation reflex normal Direct Ophthalmoscopy: normal light reflex Neck Neck: No lymphadenopathy Thyroid: Thyroid normal Chest Chest palpation & inspection: normal inspection of the chest Resp Effort & Inspection: normal respiratory effort and no audible wheezes Auscultation: clear to auscultation bilaterally, no crackles, no wheezes and lung sounds not diminished Cardio Rate: regular rate Rhythm: regular rhythm Peripheral pulses: radial pulses present and dorsalis pedis present GI Palpation (GI): no masses Auscultation: normal bowel sounds and normoactive bowel sounds Rectal Exam - Male: Yes deferred Back/Spine/Pelvis Other: 1+ edema Skin General skin exam: no rashes or lesions noted Rashes: no rashes Neuro General: No confusion Cranial nerves: Yes Equal, round and reactive pupils present and Yes Normal hearing present Cognition (Neuro): normal cognition Gait exam (Neuro): Normal gait present Motor exam (neuro): 5/5 motor strength present throughout Deep tendon reflexes (DTR's): Right brachioradialis reflex intensity grade: 2+, Left brachioradialis reflex intensity grade: 2+, Right patellar reflex intensity grade: 2+ and Left patellar reflex intensity grade: 2+ Extrem General: No edema Results AMB Hemoglobin A1c AMB Hemoglobin A1c 9.3 % Last Edit by India Mccoy CMA on 07/03/25 11:27 Results Reviewed Results Reviewed: Laboratory Last Values Hgb A1c (Clinic) 9.3 % (4.0-6.0) H 07/03/25 11:26 Coding Level of Care Code Est Pt Prev Care 40-64y(16345) Diagnoses Annual physical exam Z00.00 Type 2 diabetes mellitus with hyperglycemia E11.65 Hypercholesterolemia E78.00 Morbid obesity E66.01 GERD (gastroesophageal reflux disease) K21.9 Erythrocytosis D75.1 Bilateral primary osteoarthritis of hip M16.0 Additional Codes GRECIA-7 Assessment Billing - GRECIA-7 Assessment Tool: GRECIA-7 Assessment 83598 ([id number]) PHQ-9 - 03880 - PHQ-9 Billing: Yes ([id number]) Assessment & Plan Assessment & Plan (1) Annual physical exam: Code(s): Z00.00 - Encounter for general adult medical examination without abnormal findings Category: Medical Plan: Patient is advised to eat healthy, keep well hydrated, keep active and have adequate sleep. (2) Type 2 diabetes mellitus with hyperglycemia: Comment: Dr. gray Code(s): E11.65 - Type 2 diabetes mellitus with hyperglycemia Category: Medical Plan: Decrease the amount of carbohydrate intake, pasta, bread, rice and potatoes are all sugar and that is aside from all the sweet stuff, remember that fruits are good but they are Sweet also. Hemoglobin A1c goal of less than 6.5. (3) Hypercholesterolemia: Code(s): E78.00 - Pure hypercholesterolemia, unspecified Category: Medical Plan: Avoid fried foods, chicken skin, eggs, butter margarine, pastries and meat. Be it pork or beef they have a lot of cholesterol LDL goal of less than 100 and triglyceride of less than 150. Will need blood work (4) Morbid obesity: Code(s): E66.01 - Morbid (severe) obesity due to excess calories Category: Medical Plan: Diet and exercise (5) GERD (gastroesophageal reflux disease): Code(s): K21.9 - Gastro-esophageal reflux disease without esophagitis Category: Medical Plan: Avoid the foods that causes that usually spicy foods, tomato products, juices, coffee, soda and foods that your sensitive to. After eating do not lie down, allow 3-4 hours before in lie down. And keep the head of bed above 30 degrees to avoid the acid from going up. (6) Erythrocytosis: Code(s): D75.1 - Secondary polycythemia Category: Medical Plan: Patient needs to get blood work and follow-up with Hematology-Oncology (7) Bilateral primary osteoarthritis of hip: Code(s): M16.0 - Bilateral primary osteoarthritis of hip Category: Medical Plan History of Present Illness The patient is a 64-year-old morbidly obese male presenting for a physical exam and management of chronic conditions. He reports a new onset of aching and sensitivity to touch in his thighs bilaterally, which began last week. He denies a fall but notes hitting his right side on the bed. The patient also has a history of bilateral hip pain, worse on the left, due to arthritis confirmed on prior X-rays, for which he takes his 's naproxen approximately twice a week. He also reports persistent pain in his left lower leg for the past 4-5 months and was seen at an urgent care in May where he was diagnosed with neuralgia/sciatic nerve pain and given muscle relaxants and Tylenol. The patient's past medical history includes type 2 diabetes and hypercholesterolemia. His most recent hemoglobin A1c was 9.3%, and his last cholesterol check in October 2023 showed an LDL of 117 mg/dL. He attributes the poor glycemic control to stress-related eating and increased soda intake over the summer due to his 's illness. He also has a history of erythrocytosis, which is being monitored by hematology/oncology, with the last visit in November 2023. His last colonoscopy was in July 2023, with a recommendation for a repeat in 3 years. He reports no medication allergies and is not taking any prescribed medications currently. His family history is significant for his mother who from kidney failure attributed to multiple medications. Health Maintenance A referral will be provided for a yearly diabetic eye exam. The patient is aware he is due for a follow-up colonoscopy next year. Vaccinations for shingles and influenza were discussed, but the patient declined both. The patient was educated on the signs and symptoms of sleep apnea and advised to seek testing if symptoms develop. The patient will follow up in 3 months to review lifestyle changes and lab results. Social History - Family status: Patient's has breast cancer, and her illness has been a source of stress. - Nutritional intake: Patient admits to stress eating, consuming a lot of soda, and a diet high in foods like bread and rice, which he finds difficult to give up. - Level of activity: Implied to be low, with new recommendations to begin a daily exercise regimen. - Functional status: Reports pain in muscles when going up stairs due to being heavy. Review of Systems - Constitutional: Denies fevers. Denies significant daytime sleepiness but does fall asleep watching TV and snores at night. - GI: Reports occasional feeling of fullness or food getting stuck, which resolves after a bowel movement. Reports heartburn once or twice a month. Denies constipation or blood in stool. - : Reports nocturia once per night and increased thirst. Denies other urinary problems. - Musculoskeletal: Reports aching and sensitivity in bilateral thighs, bilateral hip pain (worse on left), and a persistent pain in the left lower leg for 4-5 months. Reports muscle pain with climbing stairs. - Neurological: Reports occasional pins and needles sensation. Denies syncope or dizziness. - Skin: Denies rash. Physical Exam General: Cooperative, healthy appearing, comfortable, no acute distress and well developed Orientation: Patient oriented x3 Limitations: No limitations Head: Normal to inspection Ears: Hearing grossly normal bilaterally Nose: Normal external nose present Face and sinus: Normal facial exam Eyes: Appearance normal, both eyes and all related structures Neck: Normal visual inspection and Yes full ROM Respiratory: Normal respiratory effort and able to speak in complete sentences. Clear to auscultation bilaterally Cardiovascular: Regular rate and rhythm. Normal S1 and S2 GI: Normal to inspection. Soft to palpation and nontender Skin: No rashes or lesions noted Neuro: Patient oriented x3 Extremities: Mild swelling noted in the left lower leg, diagnosed as neuralgia, sciatic nerve pain. Sensitive to touch, especially in the thighs and legs. Fungus infection noted in toes, especially in between the toes. Results - Labs: Recent hemoglobin A1c is 9.3%. Blood sugar in November was 106 mg/dL. LDL cholesterol from October 2023 was 117 mg/dL. Renal function is good. - Procedures: Colonoscopy in July 2023 was normal. Plan Patient was informed and verbally consented to the use of an ambient scribe for clinic note documentation during this visit. 1. Type 2 Diabetes Mellitus With Hyperglycemia The patient has uncontrolled diabetes with a hemoglobin A1c of 9.3%. He has deferred starting new medications at this time and wishes to attempt a 3-month trial of intensive lifestyle modifications, including diet and exercise, to improve glycemic control. The goals of therapy were discussed, including an A1c <6.5%, and the patient was counseled on dietary changes such as eliminating soda and juice and reducing intake of carbohydrates like bread and rice. Fasting blood work will be ordered to be completed just prior to a follow-up appointment in 3 months. 2. Hypertension The patient's blood pressure is elevated at 132/90 mmHg. The plan is to manage this with the same lifestyle modifications recommended for diabetes, with a goal of achieving a blood pressure closer to 120/80 mmHg to reduce cardiovascular risk. The patient will monitor his blood pressure at home. 3. Hypercholesterolemia The patient's last LDL cholesterol was elevated at 117 mg/dL, above the goal of less than 100 mg/dL. Management will focus on dietary changes and exercise. A repeat lipid panel will be included in the fasting labs to be done in 3 months. 4. Morbid Obesity The patient has a BMI of 45. A weight loss goal of 20-30 pounds over the next 3 months was established through diet and daily exercise. Injectable weight loss medications were discussed as a potential future option but were not initiated due to cost and patient preference. 5. Bilateral Hip Pain The patient reports bilateral hip pain from arthritis. He was counseled on the risks of naproxen, including kidney damage, and a prescription for 30 tablets with refills was provided with instructions to take it with food. The option of a cortisone injection was discussed, but the patient deferred this treatment due to its potential to increase blood sugar levels, preferring to see if weight loss improves his joint pain. 6. Tinea Pedis A physical exam revealed fungal infection on and between the patient's toes. A topical antifungal cream was prescribed to be used twice daily for one month, and the patient was counseled on using antifungal powder for prevention. 7. Erythrocytosis The patient has a history of erythrocytosis and is followed by hematology/oncology. The plan is to continue monitoring, and a CBC will be checked as part of the upcoming fasting blood work. Discussion Notes I had a detailed discussion with the patient regarding his uncontrolled type 2 diabetes, hypertension, hypercholesterolemia, and morbid obesity. I explained that his current hemoglobin A1c of 9.3% is significantly elevated and that his blood pressure of 132/90 mmHg and LDL of 117 mg/dL are also above goal. We reviewed the risks associated with these conditions, including an increased risk for heart attack, stroke, and irreversible nerve and eye damage. The patient expressed a strong desire to avoid starting new medications and requested a 3-month period to focus on intensive lifestyle changes. We agreed to this plan and set a weight loss goal of 20-30 pounds. I provided extensive counseling on dietary modifications, emphasizing the need to eliminate sugary drinks and reduce carbohydrate intake, as well as the importance of incorporating daily physical activity. We discussed various pain management options for his hip arthritis. I counseled him on the renal risks of naproxen and prescribed it for short-term use with instructions to take it with food. I explained that a cortisone injection could worsen his hyperglycemia, and he agreed to defer this option. I also stressed the importance of preventative care, including a yearly diabetic eye exam and being aware of the symptoms of sleep apnea. The plan is for him to get fasting blood work done before his follow-up appointment in three months to reassess his metabolic parameters. Patient Instructions - You have uncontrolled diabetes, high blood pressure, and high cholesterol. It is very important to get these under control to prevent serious health problems like heart attacks and strokes. - For the next 3 months, you will focus on diet and exercise to improve your numbers. Try to lose 20-30 pounds. - Diet: Stop drinking all soda and juice. Eat fruit if you want something sweet. Limit your intake of bread, rice, and pasta. - Exercise: Aim for some physical activity every single day, even if you start with something simple like walking. - Hip Pain: You have a prescription for naproxen. Only take it when needed for pain, and always take it with food to protect your stomach. Be aware that it can affect your kidneys. - Foot Care: You have a fungal infection on your feet. A cream has been sent to your pharmacy. Apply it between your toes twice a day for one month. - Blood Work: A request for fasting blood tests is at the lab. Please have this done 4-5 days before your next appointment. - Eye Exam: It is important to get your eyes checked every year because of your diabetes. A referral can be made for you. - Watch for symptoms of sleep apnea, which include loud snoring, stopping breathing during sleep, and feeling very tired during the day. Let us know if these symptoms occur. - Follow-up: Schedule a follow-up appointment in 3 months to check on your progress. Orders: Orders AMB Hemoglobin A1c Today Z13.9 - Encounter for screening, unspecified Hemoglobin A1c Today E11.65 - Type 2 diabetes mellitus with hyperglycemia Free T4 (Free Thyroxine) Today E11.65 - Type 2 diabetes mellitus with hyperglycemia Lipid Panel Today E11.65 - Type 2 diabetes mellitus with hyperglycemia, E78.00 - Pure hypercholesterolemia, unspecified Thyroid Stimulating Hormone Today E11.65 - Type 2 diabetes mellitus with hyperglycemia Comprehensive Met. Panel Today E11.65 - Type 2 diabetes mellitus with hyperglycemia Complete Blood Count Auto Diff Today E11.65 - Type 2 diabetes mellitus with hyperglycemia Microalbumin, Random (w Creat) Today E11.65 - Type 2 diabetes mellitus with hyperglycemia Creatinine Urine Today E11.65 - Type 2 diabetes mellitus with hyperglycemia Prostate Specific Antigen Scr Today E11.65 - Type 2 diabetes mellitus with hyperglycemia Vitamin B12 and Folate Today E11.65 - Type 2 diabetes mellitus with hyperglycemia UA CC w/rflx Micro + Cult Today E11.65 - Type 2 diabetes mellitus with hyperglycemia, R30.0 - Dysuria Medications: New naproxen 500 mg PO BID PRN 30 tabs 1RF pain M16.0 - Bilateral primary osteoarthritis of hip
== END 2025-07-03 12:18 | disposition home or self-care (01) ==
LOC: HO.HMCH 11:12
PROVIDERS: PCP Internal Medicine; Visit Provider Internal Medicine
DX: Z00.00 Encounter for general adult medical examination without abnormal findings (principal); E11.65 Type 2 diabetes mellitus with hyperglycemia; E66.01 Morbid (severe) obesity due to excess calories; Z68.42 Body mass index [BMI] 45.0-49.9, adult; E78.00 Pure hypercholesterolemia, unspecified; K21.9 Gastro-esophageal reflux disease without esophagitis; D75.1 Secondary polycythemia; M16.0 Bilateral primary osteoarthritis of hip

== ENCOUNTER → 2025-07-03 11:11 | Outpatient (BNVA) | payer OTHER, SELFPAY | PROVIDERS: PCP Internal Medicine; Visit Provider Internal Medicine | DX: Z00.00 Encounter for general adult medical examination without abnormal findings (principal); E11.65 Type 2 diabetes mellitus with hyperglycemia; E78.00 Pure hypercholesterolemia, unspecified; E66.01 Morbid (severe) obesity due to excess calories; K21.9 Gastro-esophageal reflux disease without esophagitis; I10 Essential (primary) hypertension; D75.1 Secondary polycythemia; M16.0 Bilateral primary osteoarthritis of hip; M25.551 Pain in right hip; M25.552 Pain in left hip; B35.3 Tinea pedis; R30.0 Dysuria; Z68.42 Body mass index [BMI] 45.0-49.9, adult | CPT/HCPCS: 83036; 96127 ==